=== PATIENT | female | born 1955 ===

== ENCOUNTER 2018-06-20 09:37 | Inpatient (IN) | payer MEDICAID ==
[2018-06-20] MEDS ORDERED: NS 1,000 ML IV ONE (10:08)
[2018-06-20] MEDS ORDERED: ONDANSETRON 4 MG/2 ML VIAL IVP ONE (10:08)
--- NOTE | 2018-06-20 10:13 | EDPHY ---
H & P Stated Complaint: abdominal pain since 10 am yesterday Time Seen by Provider: 06/20/18 09:45 HPI/ROS: This patient describes lower abdominal pain with abdominal distension that started gradually yesterday morning and worsened today. She reports associated subjective fever yesterday accompanied by chills and diaphoresis that is seems to have improved today but the pain has increased to 7/10 in intensity at rest and 9/10 with any movement. She reports that bumps in the road on the way here bothered her and that she has increased pain when she bends forward compresses or belly compared to relaxing back or lying still. She has not taken any medications for her pain at this morning. She has never had this pain before. She has associated nausea but no vomiting. She drove herself here by private vehicle for evaluation of the symptoms. ROS: Constitutional: Subjective fevers and chills. Otherwise negative HEENT: Some coryza recently Pulmonary: No significant cough other than occasional triggered by postnasal drip from her coryza. No shortness of breath. Cardiovascular: No chest pain or heart palpitations. No lightheadedness GI: She has decreased appetite over the past 24 hr and nausea but no vomiting. She had loose stool yesterday and no bowel movement today. : Dark urine but no dysuria. No flank pain. No vaginal discharge. Integumentary: No skin rash. No other complaints 10 point review of symptoms is performed and otherwise negative with exception of pertinent positives and negatives listed in HPI and ROS Source: Patient Exam Limitations: No limitations - Personal History Current Tetanus Diphtheria and Acellular Pertussis (TDAP): No Tetanus Vaccine Date: > 10 years - Medical/Surgical History PMH: Past surgical history of a pelvic abscess that required surgery in 1979 Hx Asthma: No Hx Chronic Respiratory Disease: No Hx Diabetes: No Hx Cardiac Disease: No Hx Renal Disease: No Hx Cirrhosis: No Hx Alcoholism: No Hx HIV/AIDS: No Hx Splenectomy or Spleen Trauma: No Other PMH: denies - Family History Significant Family History: No pertinent family hx - Social History Smoking Status: Never smoked Alcohol Use: Rarely Drug Use: None - Physical Exam Exam: General Appearance: Alert, no distress. Eyes: Pupils equal and round no pallor or injection. ENT, Mouth: Mucous membranes moist. Respiratory: There are no retractions, lungs are clear to auscultation. Cardiovascular: Regular rate and rhythm. Gastrointestinal: Hypoactive bowel sounds, soft, patient has exquisite lower abdominal tenderness left lower quadrant more than right lower quadrant. Also present in the midline. She does have some rebound tenderness in the left lower quadrant Neurological: GCS 15 with no focal deficits Skin: Warm and dry, no rashes. Musculoskeletal: Neck is supple nontender. Extremities are symmetrical, full range of motion. Psychiatric: mood and affect are normal DIFFERENTIAL DIAGNOSIS: After history and physical exam differential diagnosis was considered for diverticulitis, diverticular abscess, appendicitis, bowel obstruction, perforated viscus, UTI Constitutional: Initial Vital Signs Temperature (C) 37.6 C 06/20/18 09:41 Heart Rate 95 06/20/18 09:41 Respiratory Rate 20 06/20/18 09:41 Blood Pressure 143/88 H 06/20/18 09:41 O2 Sat (%) 99 06/20/18 09:41 O2 Delivery Mode Room Air Allergies/Adverse Reactions: cephalexin [From Keflex] Allergy (Verified 06/20/18 09:45) Home Medications: Medication Instructions Recorded Ibuprofen [Motrin (*)] 600 mg PO BID PRN 06/20/18 Medical Decision Making - Diagnostics Imaging: Discussed imaging studies w/ callisthenics instructor Radiologist (I also reviewed these images myself.) ED Course/Re-evaluation: IV normal saline bolus Zofran IV Patient declined morphine for pain control, treated with Toradol after I reviewed her basic metabolic panel Toradol IV CT abdomen pelvis At 11:45 a.m. After conversation with the radiologist I discussed the patient's CT findings-consistent with a perforated sigmoid diverticulum. Patient has decent pain control from Toradol I will treat her with ertapenem given cephalosporin allergy (rash only) I counseled regarding the need for admission. She is comfortable with plan to admit to [facility]. Paged to our on-call surgeon is placed at 11:50 a.m. I discussed this case with Dr. Méndez, general surgeon on-call accepts the patient for admission to [facility] bed at [facility]. He agrees with ertapenem plan for IV antibiotic given the patient's cephalosporin allergy. Discussion: Patient presents with perforated sigmoid diverticulitis without evidence of sepsis. Her labs notable for leukocytosis with left shift. She has 5 white blood cells per high-power field in her urine which I think is likely sympathetic inflammation of the ureter rather than primary UTI the UTIs possibility. Clinically she does not have pyelonephritis given lack of CVA tenderness or significant pyuria. Metabolic panel in is normal exception of a borderline potassium of 3.2. I counseled patient regarding her diagnosis in some detail. She is agreeable to plan for admission to [facility]. - Data Points Laboratory Results: Laboratory Results 06/20/18 09:50 Medications Given: Hydromorphone HCl (Dilaudid) 0.2 - 0.4 mg IVP Q2HRS PRN PRN Reason: Pain, Severe Unable to Take PO Stop: 06/30/18 12:23 Last Admin: 06/20/18 23:51 Dose: 0.4 mg Potassium Chloride/Dextrose/Sod Cl (D5w 1/2 Ns W/ 20 Kcl/L) 1,000 mls @ 125 mls /hr IV CONT TROY Stop: 12/17/18 12:29 Last Admin: 06/22/18 00:56 Dose: 1,000 mls Levofloxacin/Dextrose (Levaquin 750 Mg (Premix)) 150 mls @ 100 mls/hr IV DAILY TROY PRN Reason: Protocol Stop: 07/21/18 08:59 Last Admin: 06/21/18 08:56 Dose: 150 mls Metronidazole/Sodium Chloride (Flagyl 500 Mg (Premix)) 100 mls @ 100 mls/hr IV Q8HRS TROY PRN Reason: Protocol Stop: 07/20/18 13:59 Last Admin: 06/22/18 05:44 Dose: 100 mls Ondansetron HCl (Zofran) 4 mg IVP Q4HRS PRN PRN Reason: Nausea/Vomiting, Can't Take PO Stop: 12/17/18 12:23 Last Admin: 06/20/18 15:32 Dose: 4 mg Discontinued Medications Sodium Chloride (Ns) 1,000 mls @ 0 mls/hr IV EDNOW ONE; Wide Open PRN Reason: Protocol Stop: 06/20/18 10:09 Last Admin: 06/20/18 10:16 Dose: 1,000 mls Ertapenem 1 gm/ Sodium (Chloride) 100 mls @ 200 mls/hr IV EDNOW ONE PRN Reason: Protocol Stop: 06/20/18 12:14 Last Admin: 06/20/18 11:58 Dose: 100 mls Ketorolac Tromethamine (Toradol) 15 mg IVP EDNOW ONE Stop: 06/20/18 10:28 Last Admin: 06/20/18 10:32 Dose: 15 mg Morphine Sulfate (Morphine) 5 mg IVP EDNOW ONE Stop: 06/20/18 10:17 Last Admin: 06/20/18 10:25 Dose: Not Given Ondansetron HCl (Zofran) 4 mg IVP EDNOW ONE Stop: 06/20/18 10:09 Last Admin: 06/20/18 10:17 Dose: 4 mg Point of Care Test Results: Chemistry 06/20/18 10:13 POC Sodium 138 mEq/L mEq/L (135-145) POC Potassium 3.2 mEq/L L mEq/L (3.3-5.0) POC Chloride 100.0 mEq/L mEq/L (97-110) POC Total CO2 24 mEq/L mEq/L (22-31) POC BUN 11 mg/dL mg/dL (7-23) POC Creatinine 0.9 mg/dL mg/dL (0.6-1.0) POC Glucose 141 mg/dL H mg/dL (70-100) POC Calcium 9.9 mg/dL mg/dL (8.5-10.4) Urine Dip Collection Date 06/20/18 Collection Time 10:00 Specific [place] (1.002-1.030) 1.015 PH (5.0-7.5) 7.5 Leukocytes (Negative) 1+ Nitrites (Negative) Positive Protein (Negative) 2+ Glucose (Negative) Negative Ketones (Negative) 1+ Urobilnogen (0.2-1.0 EU) 8.0 Bilirubin (Negative) Negative Blood (Negative) Negative Departure - Departure Disposition: [facility] Clinical Impression: Perforation of sigmoid colon due to diverticulitis Condition: Fair
[2018-06-20] MEDS ORDERED: KETOROLAC 15 MG/1 ML SDV IVP ONE (10:27)
[2018-06-20] MEDS ORDERED: IOPAMIDOL (ISOVUE-300) 100 ML BTL ONE (10:29)
[2018-06-20 11:20] LABS: PLATELET COUNT 329 10^3/uL (150-400)
[2018-06-20] MEDS ORDERED: ERTAPENEM 1 GM in NS 100 ML IV ONE (11:45)
[2018-06-20] MEDS ORDERED: PROMETHAZINE HCL 25 MG/ML INJ IVP PRN (12:24)
[2018-06-20] MEDS ORDERED: oxyCODONE IR 5 MG TAB PO PRN (12:24)
[2018-06-20] MEDS ORDERED: ONDANSETRON 4 MG/2 ML VIAL IVP PRN (12:24)
[2018-06-20] MEDS ORDERED: ACETAMINOPHEN 325 MG TAB PO PRN (12:24)
[2018-06-20] MEDS ORDERED: HYOSCYAMINE SULFATE 0.125 MG TAB PO ONE (13:06)
--- NOTE | 2018-06-20 14:33 | ASMTCMCOM ---
CM Note CM Note Notes: Chart reviewed for discharge planning purposes. 63 year old female admitted via ED with c/o abdominal pain. Diagnosis of perforated sigmoid colon. Needs TBD. Plan : TBD Date Signed: 06/20/2018 02:32 PM Electronically Signed By:Nikole Warren RN
[2018-06-20] MEDS: D5W 1/2 NS W/ 20 KCl/L 1,000 ML IV SCH (14:39)
--- NOTE | 2018-06-20 15:18 | PDGENHP ---
History and Physical - Chief Complaint Abdominal pain - History of Present Illness 62-year-old female presents to the emergency department with acute onset abdominal pain. Patient states that she awoke yesterday morning in her usual state of health and felt fine, around 10:00 a.m. Began to have some mild abdominal cramps. She was able to go about her morning [place] and even picked up a boris muffin from [employer]. She states that late morning or early afternoon the pain began to progress which caused her to lie down. She states that she was in bed for the remainder of Tuesday,, she had a pretty significant fever of which was on measured yesterday evening which eventually broke after which she felt better and subsequently slept through the night. She woke this morning stating that she felt well, the abdominal pain quickly returned and this time was worse, she subsequently drove herself to the emergency department and states that it was difficult for her to even get out of the car because the pain was so bad. Here in the hospital, she describes a low level pain approximately 3/10 currently worse with movement and deep palpation. She denies having any current fevers or chills and states that when she is lying flat she feels well, she has never had pain like this before. She has never had a colonoscopy. History Information - Allergies/Home Medication List Allergies/Adverse Reactions: cephalexin [From Keflex] Allergy (Verified 06/20/18 09:45) Home Medications: NK [No Known Home Meds] 06/20/18 [Last Taken Unknown] I have personally reviewed and updated: medical history, social history, surgical history - Past Medical History no pertinent PMH - Surgical History Additional surgical history: pelvic abscess s/p IUD in 1980s, had to have ex- lap to washout. 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 Review of Systems Review of Systems: ROS: 10pt was reviewed & negative except for what was stated in HPI & below Physical Exam Physical Exam: Temp Pulse Resp BP Pulse Ox 37.0 C 87 16 111/64 98 06/20/18 14:28 06/20/18 14:28 06/20/18 14:28 06/20/18 14:28 06/20/18 14:28 Constitutional: no apparent distress, appears nourished, not in pain Eyes: PERRL, anicteric sclera, EOMI Ears, Nose, Mouth, Throat: moist mucous membranes, hearing normal, ears appear normal, no oral mucosal ulcers Cardiovascular: regular rate and rhythym, no murmur, rub, or gallop, No edema Respiratory: no respiratory distress, no rales or rhonchi, clear to auscultation Gastrointestinal: normoactive bowel sounds, no palpable masses, other (TTP in pelvis, no rebound or guarding. Well-healed Pfannensteil scar) Genitourinary: no bladder fullness, no bladder tenderness Skin: warm, normal color, no rashes or abrasions, no fluctuance, no induration, No mottled Musculoskeletal: full muscle strength, no muscle tenderness, normal joint ROM, no joint effusions Psychiatric: interacting appropriately, not anxious, not encephalopathic, thought process linear Lymph, Heme, Immunologic: no cervical LAD, no supraclavicular LAD Lab Data & Imaging Review 06/20/18 09:50 WBC 18.62 10^3/uL (3.80-9.50) H 06/20/18 09:50 RBC 5.15 10^6/uL (4.18-5.33) 06/20/18 09:50 Hgb 15.7 g/dL (12.6-16.3) 06/20/18 09:50 Hct 46.4 % (38.0-47.0) 06/20/18 09:50 MCV 90.1 fL (81.5-99.8) 06/20/18 09:50 MCH 30.5 pg (27.9-34.1) 06/20/18 09:50 MCHC 33.8 g/dL (32.4-36.7) 06/20/18 09:50 RDW 13.2 % (11.5-15.2) 06/20/18 09:50 Plt Count 329 10^3/uL (150-400) 06/20/18 09:50 MPV 10.7 fL (8.7-11.7) 06/20/18 09:50 Neut % (Auto) 90.6 % (39.3-74.2) H 06/20/18 09:50 Lymph % (Auto) 5.7 % (15.0-45.0) L 06/20/18 09:50 [place] % (Auto) 3.1 % (4.5-13.0) L 06/20/18 09:50 Eos % (Auto) 0.0 % (0.6-7.6) L 06/20/18 09:50 Baso % (Auto) 0.2 % (0.3-1.7) L 06/20/18 09:50 Nucleat RBC Rel Count 0.0 % (0.0-0.2) 06/20/18 09:50 Absolute Neuts (auto) 16.87 10^3/uL (1.70-6.50) H 06/20/18 09:50 Absolute Lymphs (auto) 1.07 10^3/uL (1.00-3.00) 06/20/18 09:50 Absolute Monos (auto) 0.58 10^3/uL (0.30-0.80) 06/20/18 09:50 Absolute Eos (auto) 0.00 10^3/uL (0.03-0.40) L 06/20/18 09:50 Absolute Basos (auto) 0.03 10^3/uL (0.02-0.10) 06/20/18 09:50 Absolute Nucleated RBC 0.00 10^3/uL (0-0.01) 06/20/18 09:50 Immature Gran % 0.4 % (0.0-1.1) 06/20/18 09:50 Immature Gran # 0.07 10^3/uL (0.00-0.10) 06/20/18 09:50 POC Sodium 138 mEq/L (135-145) 06/20/18 10:13 POC Potassium 3.2 mEq/L (3.3-5.0) L 06/20/18 10:13 POC Chloride 100.0 mEq/L (97-110) 06/20/18 10:13 POC Total CO2 24 mEq/L (22-31) 06/20/18 10:13 POC BUN 11 mg/dL (7-23) 06/20/18 10:13 POC Creatinine 0.9 mg/dL (0.6-1.0) 06/20/18 10:13 POC Glucose 141 mg/dL (70-100) H 06/20/18 10:13 POC Calcium 9.9 mg/dL (8.5-10.4) 06/20/18 10:13 Urine RBC 1-3 /hpf (0-3) 06/20/18 09:50 Urine WBC 3-5 /hpf (0-3) H 06/20/18 09:50 Ur Epithelial Cells 1+ /lpf (NONE-1+) 06/20/18 09:50 Urine Mucus TRACE /lpf (NONE-1+) 06/20/18 09:50 Visualized and Interpreted imaging results: Yes Interpretation: CT: inflamed sigmoid colon, small perf containing air adjacent. no free fluid Assessment & Plan Assessment: Perforation of sigmoid colon due to diverticulitis (Acute) Plan: 62yo M c Diverticulitis, complicated c perf containing air - Patients vitals are currently stable, she is tender on exam but appears to be improving. Will continue to follow. IV abx and hydration. I told the patient that if she decompensates, she will need OR for resection and washout and likely colostomy which she understands would likely be temporary. Likely hospital course reviewed with the patient.
[2018-06-20] MEDS: HYDROmorphone HCL 0.5 MG/0.5 ML SYR IVP PRN ×2 (16:43→23:51)
[2018-06-21] MEDS: D5W 1/2 NS W/ 20 KCl/L 1,000 ML IV SCH ×2 (02:45→13:31)
[2018-06-21 05:02] LABS: PLATELET COUNT 205 10^3/uL (150-400)
--- NOTE | 2018-06-21 07:59 | SOAPPROG ---
SOAP Progress Note Assessment/Plan: Assessment: 62yo F c complicated divertic - VSS, HDS - WBC down today - pain markedly improved - cont IV abx, making progress. Keep NPO, a few ice chips ok Plan: 06/21/18 07:58 Subjective: feels better, still some pain but improved Objective: Vital Signs Temp Pulse Resp BP Pulse Ox 37.1 C 81 14 105/58 L 92 06/21/18 07:54 06/21/18 07:54 06/21/18 07:54 06/21/18 07:54 06/21/18 07:54 Laboratory Results 06/21/18 04:21 06/20/18 06/21/18 06/22/18 05:59 05:59 05:59 Intake Total 2600 Output Total 400 Balance 2200 ICD10 Worksheet Patient Problems: Problems Problem Status Onset Perforation of sigmoid colon due to diverticulitis Acute
--- NOTE | 2018-06-21 14:18 | PDMN ---
Medical Necessity Medical necessity: Pt meets IP criteria per MD & MCG M-150; est los >2 mn for eval/tx of diverticulitis complicated by perforated sigmoid diverticulum; requiring further monitoring, IV abx, IVFs, NPO status & pain management; per H& P & order 06/20/18
[2018-06-22] MEDS: D5W 1/2 NS W/ 20 KCl/L 1,000 ML IV SCH ×2 (00:56→19:56)
[2018-06-22 04:17] LABS: PLATELET COUNT 220 10^3/uL (150-400)
--- NOTE | 2018-06-22 08:46 | SOAPPROG ---
SOAP Progress Note Assessment/Plan: Assessment: 62yo F c complicated divertic - VSS, HDS, remains afebrile - WBC normal - abdominal exam reassuring and she is having BMs with some cramps - cont ice chips, ambulate today. Plan: 06/21/18 07:58 06/22/18 08:45 Subjective: feels better, having BMs, still some discomfort Objective: Vital Signs Temp Pulse Resp BP Pulse Ox 37.1 C 78 16 116/85 H 98 06/22/18 08:36 06/22/18 08:36 06/22/18 08:36 06/22/18 08:36 06/22/18 08:36 Laboratory Results 06/22/18 04:07 06/21/18 06/22/18 06/23/18 05:59 05:59 05:59 Intake Total 2600 6164 Output Total 400 2100 Balance 2200 624 ICD10 Worksheet Patient Problems: Problems Problem Status Onset Perforation of sigmoid colon due to diverticulitis Acute
--- NOTE | 2018-06-22 10:41 | ASMTCMCOM ---
CM Note CM Note Notes: Met with patient to review plan of care. She is improving and has no identified needs at this time. CM available should needs arise. Plan: Dc to home independently. Date Signed: 06/22/2018 10:40 AM Electronically Signed By:Nikole Warren RN
[2018-06-23 05:13] LABS: PLATELET COUNT 239 10^3/uL (150-400)
[2018-06-23 08:57] VITALS: BP 143/84
--- NOTE | 2018-06-23 08:59 | SOAPPROG ---
SOAP Progress Note Assessment/Plan: Assessment: 62yo F c complicated divertic - Vitals continue to look good - pain is minimal, she is tolerating clears. Will ADAT - IV out, switching to PO levaquin and flagyl. Will dc on these - will check in later today but if tolerating diet will plan for home on addl week of abx - will need c-scope and f/u. Plan: 06/21/18 07:58 06/22/18 08:45 06/23/18 08:58 Subjective: some indigestion with PO but otherwise well tolerated Objective: Vital Signs Temp Pulse Resp BP Pulse Ox 36.9 C 73 16 143/84 H 96 06/23/18 08:54 06/23/18 08:54 06/23/18 08:54 06/23/18 08:54 06/23/18 08:54 Laboratory Results 06/23/18 04:30 06/22/18 06/23/18 06/24/18 05:59 05:59 05:59 Intake Total 0571 740 Output Total 2100 1000 Balance 624 -260 ICD10 Worksheet Patient Problems: Problems Problem Status Onset Perforation of sigmoid colon due to diverticulitis Acute
[2018-06-23] MEDS: metroNIDAZOLE 500 MG TAB PO SCH ×2 (09:21→13:48)
--- NOTE | 2018-06-23 12:51 | PDDCSUM ---
Discharge Summary Discharge Summary: DISCHARGE SUMMARY Date of Admission 06/20 Date of Discharge 06/23 DISCHARGE DIAGNOSES -Complicated diverticulitis HOSPITAL COURSE The patient was admitted from the ED where she had a CT scan which showed perforated diverticulitis with some localized free air. They were treated conservatively with antibiotics and her pain resolved. The hospital course was uneventful, their diet was advanced to a regular diet which was well tolerated and their pain was well controlled. They were discharged home in stable condition on the afternoon of the DISCHARGE MEDICATIONS Levaquin and flagyl for 7 additional days DISPOSITION home FOLLOW UP Follow up with me in the office in 10-14 days for a general post-operative visit
--- NOTE | 2018-06-23 13:04 | ASDISCHSUM ---
Discharge Information Plan Status:Home with No Needs Medically Cleared to Leave:06/23/2018 Discharge Date:06/23/2018 CM D/C Disposition:Home, Routine, Self-Care ADT D/C Disposition:Home, Routine, Self-Care Projected Discharge Date:06/23/2018 Transportation at D/C:Family Discharge Delay Reason: Follow-Up Date:06/23/2018 Discharge Slot: Final Diagnosis: Placement Information Patient Contact Information Contact Name:JIMMY Relationship:Mother Address:[address] Work Phone: City:[place] Alternate Phone: State/Zip Code:[place] [address] Email: Financial Information Financial Class:Medicaid Primary Plan Desc:[employer] [place] Primary Plan Number:[id number] Secondary Plan Desc: Secondary Plan Number: Assessment Information LACE LACE Length of stay for Answers: 3 days current admission Comorbidities - select Answers: Other Notes: diverticulum all that apply # of Emergency department Answers: 1-2 visits in the last 6 months Score: 5 Date Signed: 06/23/2018 12:54 PM Electronically Signed By:Nikole Warren RN [facility] CM Progress Note CM Note CM Note Notes: Chart reviewed for discharge planning purposes. 63 year old female admitted via ED with c/o abdominal pain. Diagnosis of perforated sigmoid colon. Needs TBD. Plan : TBD Date Signed: 06/20/2018 02:32 PM Electronically Signed By:Nikole Warren RN [facility] CM Progress Note CM Note CM Note Notes: Met with patient to review plan of care. She is improving and has no identified needs at this time. CM available should needs arise. Plan: Dc to home independently. Date Signed: 06/22/2018 10:40 AM Electronically Signed By:Nikole Warren RN [facility] CM Progress Note CM Note CM Note Notes: Medically cleared per surgery for discharge to home. No needs identified. CM available should needs arise. Plan: Dc to home no needs. Date Signed: 06/23/2018 12:54 PM Electronically Signed By:Nikole Warren RN Intervention Information
== END 2018-06-23 18:13 | disposition home or self-care (01) | DRG 244 ==
LOC: CED 09:37 → CEDHOLD 12:06 → F1N 14:26
PROVIDERS: ADMIT Surgery; ATTEND Surgery
DX: K57.20 Diverticulitis of large intestine with perforation and abscess without bleeding (principal); Z87.891 Personal history of nicotine dependence
CPT/HCPCS: 74177-PO; 80048-PO; 96365; J1170; J1335; J1885; J1956; J2270; J2405; Q9967